=== PATIENT | male | born 1945 | race Caucasian/White ===

== ENCOUNTER 2022-06-13 08:53 | Emergency (ER) | payer BC, OTHER ==
[2022-06-13 09:27] VITALS: BP 189/95; PULSE 65; RESP 20; TEMP 98.4; BMI 23.2
[2022-06-13 10:23] LABS: URINE MUCUS 1+
== END 2022-06-13 10:42 | disposition home or self-care (01) ==
LOC: FER 08:53
DX: R33.9 Retention of urine, unspecified (principal); K64.9 Unspecified hemorrhoids
CPT/HCPCS: 81003; 81015; 87086; 99283-25

== ENCOUNTER 2022-07-15 21:44 | Emergency (ER) | payer OTHER ==
[2022-07-15 22:01] VITALS: RESP 16; TEMP 98.5; BMI 23.1
[2022-07-15 22:19] LABS: EPITHELIAL CELLS FEW /hpf
[2022-07-15 22:22] VITALS: BP 141/82; PULSE 82
[2022-07-15] MEDS ORDERED: CIPROFLOXACIN 500 MG TABLET (RESTRICTED TO ID) PO ONE (22:22)
[2022-07-15] MEDS ORDERED: CIPROFLOXACIN 250 MG TABLET (RESTRICTED TO ID) PO ONE (22:23)
== END 2022-07-15 22:41 | disposition home or self-care (01) ==
LOC: FER 21:44
DX: R33.9 Retention of urine, unspecified (principal); N39.0 Urinary tract infection, site not specified; K64.9 Unspecified hemorrhoids
CPT/HCPCS: 81003; 81015; 87086; 87186; 99283-25

== ENCOUNTER 2022-08-12 05:05 | Emergency (ER) | payer OTHER ==
[2022-08-12 05:32] VITALS: BMI 22.8
[2022-08-12 06:24] VITALS: BP 165/82; PULSE 81; RESP 18; TEMP 98
== END 2022-08-12 07:09 | disposition home or self-care (01) ==
LOC: FER 05:05
DX: T83.091A Other mechanical complication of indwelling urethral catheter, initial encounter (principal); K64.9 Unspecified hemorrhoids
CPT/HCPCS: 99282-25